=== PATIENT | male | born 1990 | race Two or more races ===

== ENCOUNTER 2022-07-23 12:21 | Emergency (ER) | payer OTHER ==
[~2022-07-23] VITALS: Ht 180.3 cm; Wt 122.5 kg
[2022-07-23] MEDS ORDERED: FLUORESCEIN SOD OPTH TEST STRIP RIGHTEYE ONE (17:00)
[2022-07-23] MEDS ORDERED: FLUORESCEIN SOD OPTH TEST STRIP LEFTEYE ONE (17:00)
[2022-07-23] MEDS ORDERED: IBUPROFEN 600 MG TAB PO ONE (17:00)
[2022-07-23] MEDS ORDERED: TETRACAINE HCL 0.5% OPTH(EYE) SOLN 4ML EACHEYE ONE (17:00)
[2022-07-23] MEDS ORDERED: ERY05OO OP (17:45)
[2022-07-23] MEDS ORDERED: IBUP600T28 PO (17:47)
[2022-07-23] MEDS ORDERED: CYCL-839 PO (17:47)
[2022-07-23 18:00] VITALS: BP 131/71
== END 2022-07-23 18:20 | disposition home or self-care (01) ==
LOC: ER 12:21
DX: S63.501A Unspecified sprain of right wrist, initial encounter (principal); S16.1XXA Strain of muscle, fascia and tendon at neck level, initial encounter; S80.02XA Contusion of left knee, initial encounter; S05.01XA Injury of conjunctiva and corneal abrasion without foreign body, right eye, initial encounter; V09.9XXA Pedestrian injured in unspecified transport accident, initial encounter; Y93.89 Activity, other specified; Y92.511 Restaurant or cafe as the place of occurrence of the external cause; Y99.8 Other external cause status
CPT/HCPCS: 72040; 73090; 73110; 73560